=== PATIENT | female | born 1990 | race Caucasian/White ===

== ENCOUNTER → 2017-05-12 10:38 | Outpatient (CLI) | payer OTHER, SELFPAY ==
[2017-05-12 10:55] LABS: Basophils % 0.6 % (0.1-2.0); Eosinophils # 0.1 K/mm3 (0.0-0.4); Eosinophils % 1.4 % (0.1-12.0); Hematocrit 44.5 % (37.0-47.0); Lymphocytes # 2.2 K/mm3 (0.7-4.5); Lymphocytes % 39.7 K/mm3 (10-50); Mean Corpuscular HGB Conc 31.6 g/dL (31.8-35.4); Mean Corpuscular Hemoglobin 27.3 pg (27.0-31.2); Mean Corpuscular Volume 86.4 fl (81-99); Mean Platelet Volume 7.6 fl (7.4-10.4); Monocytes # 0.3 K/mm3 (0.1-1.0); Monocytes % 5.8 % (1.7-9.3); Neutrophils % 52.5 % (37.0-80.0); Platelet Count 342 K/mm3 (142-424); Red Blood Count 5.15 M/mm3 (4.20-5.40); Red Cell Distribution Width 13.8 % (11.5-17.5); White Blood Count 5.6 K/mm3 (4.8-10.8)
[2017-05-12 11:20] LABS: Alanine Aminotransferase 28 U/L (12-78); Albumin Level 3.6 gm/dL (3.4-5.0); Albumin/Globulin Ratio 0.7 (1.1-1.8); Alkaline Phosphatase 79 U/L (46-116); Anion Gap 11.4 mEq/L (5-15); Aspartate Amino Transferase 19 U/L (15-37); Bilirubin,Total 0.2 mg/dL (0.2-1.0); Blood Urea Nitrogen 16 mg/dL (7-18); Calcium 9.2 mg/dL (8.5-10.1); Carbon Dioxide 28 mmol/L (21.0-32.0); Chloride 101 mmol/L (98-107); Creatinine,Serum 0.84 mg/dL (0.55-1.02); Estimated Glomerular Filt Rate 83 ml/min (>60); Ferritin 59 ng/mL (8-388); GFR (African American) 101 ML/MIN (>60); Globulin 4.9 gm/dl (1.3-3.2); Glucose 87 mg/dL (74-106); Potassium 4.4 mmoL/L (3.5-5.1); Sodium 136 mmol/L (136-145); Total Protein,Serum 8.5 gm/dL (6.4-8.2)
[2017-05-13 15:09] LABS: Iron 36 ug/dL (27-159); Iron Saturation 9 % (15-55); UIBC 348 ug/dL (131-425)
[2017-05-15 15:37] LABS: Vitamin B12 629 pg/mL (232-1245); Vitamin D 25 Hydroxy 34.1 ng/mL (30.0-100.0)
== END ==
PROVIDERS: Visit Provider Nurse Practitioner Acute Care
DX: E61.1 Iron deficiency (principal)
CPT/HCPCS: 36415; 80053; 82607; 82652; 82728; 83550; 85025

== ENCOUNTER → 2018-05-13 09:26 | Outpatient (CLI) | payer OTHER, SELFPAY ==
[2018-05-13 09:42] LABS: Basophils # 0.1 K/mm3 (0-0.2); Basophils % 0.6 % (0.1-2.0); Eosinophils # 0.1 K/mm3 (0.0-0.4); Eosinophils % 1.5 % (0.1-12.0); Hematocrit 38.2 % (37.0-47.0); Hemoglobin 12.4 g/dL (12.2-16.2); Lymphocytes # 2.2 K/mm3 (0.7-4.5); Lymphocytes % 29.5 % (10-50); Mean Corpuscular HGB Conc 32.6 g/dL (31.8-35.4); Mean Corpuscular Hemoglobin 27.5 pg (27.0-31.2); Mean Corpuscular Volume 84.5 fl (81-99); Mean Platelet Volume 7.9 fl (7.4-10.4); Monocytes # 0.3 K/mm3 (0.1-1.0); Monocytes % 4.5 % (1.7-9.3); Neutrophils # 4.7 K/mm3 (1.8-7.8); Neutrophils % 63.9 % (37.0-80.0); Platelet Count 298 K/mm3 (142-424); Red Blood Count 4.52 M/mm3 (4.20-5.40); Red Cell Distribution Width 14.3 % (11.5-17.5); White Blood Count 7.3 K/mm3 (4.8-10.8)
[2018-05-13 10:58] LABS: Alanine Aminotransferase 19 U/L (12-78); Albumin Level 3.3 gm/dL (3.4-5.0); Albumin/Globulin Ratio 0.8 (1.1-1.8); Alkaline Phosphatase 72 U/L (46-116); Anion Gap 13.1 mEq/L (5-15); Aspartate Amino Transferase 13 U/L (15-37); Bilirubin,Total 0.1 mg/dL (0.2-1.0); Blood Urea Nitrogen 12 mg/dL (7-18); Calcium 8.6 mg/dL (8.5-10.1); Carbon Dioxide 27 mmol/L (21.0-32.0); Chloride 104 mmol/L (98-107); Chol/HDL Ratio 5.9 (1-3.5); Cholesterol 214 mg/dL (140-200); Estimated Glomerular Filt Rate 87 ml/min (>60); GFR (African American) 106 ML/MIN (>60); Globulin 4.3 gm/dl (1.3-3.2); Glucose 93 mg/dL (74-106); HDL Cholesterol 36 mg/dL (29-89); LDL Cholesterol 119 mg/dL (0-130); Potassium 4.1 mmoL/L (3.5-5.1); Sodium 140 mmol/L (136-145); Thyroid Stimulating Hormone 3.36 uIU/ml (0.358-3.740); Total Protein,Serum 7.6 gm/dL (6.4-8.2); Triglycerides 297 mg/dL (30-200); VLDL Cholesterol 59 mg/dL (0-40)
== END ==
PROVIDERS: Visit Provider Nurse Practitioner Family
DX: Z00.00 Encounter for general adult medical examination without abnormal findings (principal); R63.5 Abnormal weight gain
CPT/HCPCS: 36415; 80053; 80061; 84443; 85025

== ENCOUNTER → 2019-11-03 18:15 | Outpatient (CLI) | payer BC, SELFPAY ==
[2019-11-05 16:08] LABS: Covid-19 Nasal PCR Sendout Lex Not Detected
== END ==
PROVIDERS: PCP Internal Medicine Adolescent Medicine; Visit Provider Internal Medicine Adolescent Medicine
DX: Z03.818 Encounter for observation for suspected exposure to other biological agents ruled out (principal); R52 Pain, unspecified
CPT/HCPCS: U0004

== ENCOUNTER → 2020-05-20 10:01 | Outpatient (CLI) | payer BC, SELFPAY ==
[2020-05-20 11:23] LABS: HCG,Quantitative < 2 mIU/ml (0-5.42)
== END ==
PROVIDERS: Visit Provider Nurse Practitioner Family
DX: N92.6 Irregular menstruation, unspecified (principal)
CPT/HCPCS: 36415; 84702

== ENCOUNTER 2020-07-11 14:45 | Emergency (ER) | payer BC, SELFPAY ==
[2020-07-11 14:45] VITALS: BP 140/108; PULSE 96; RESP 21; TEMP 36.8; O2SAT 96; BMI 35.1
--- NOTE | 2020-07-11 15:07 | HMH.EDUTC ---
[facility] [place] Disposition Clinical Impression: Poison jovanny dermatitis Disposition: Home, Self-Care Condition on Discharge: Good Instructions: Summertime Rashes: Poison Jovanny, [place], and [place], Poison Jovanny, Poison [place], Poison [place], DI for Poison Jovanny Allergy, Prednisone Additional Instructions: Cool compresses on the skin may help with itching Over the counter Benadryl may help with itching Over the counter Calamine lotion may help with itching and to dry up the rash Oatmeal bathes may help to dry up the rash Start oral prednisone on 07/13/20 Prescriptions: predniSONE [Prednisone 5mg Tab Dose-Pack] 5 mg PO UD DOSE PK 6 Days #21 pack Transmission Status: Received by [facility] [id number] Referrals: Ino Hernandez MD [Primary Care Provider] - As needed Medical Decision Making - Erik Inquiry Pt receiving controlled substance: No Erik was queried for this patient: No Vital Signs: 07/11/20 14:45 07/11/20 15:35 Temperature 98.2 F 98.2 F Temperature Source Oral Pulse Rate 96 H Pulse Rate [Right Brachial] 96 H Respiratory Rate Blood Pressure 138/92 H Blood Pressure [Right Arm] 140/108 H Blood Pressure Mean [Right Arm] 118 Blood Pressure Source Automatic Cuff Blood Pressure Source [Right Arm] Automatic Cuff Blood Pressure Position Sitting Blood Pressure Position [Right Arm] Sitting 02 Sat by Pulse Oximetry 96 Oxygen Delivery Method Room Air - Lab Data Lab Results 07/11/20 15:21: [facility] Clinic Negative Orders (Tests/Meds): ED MEDICATIONS Discontinued Medications Generic Name Dose Route Start Last Admin Trade Name Rony PRN Reason Stop Dose Admin Methylprednisolone Sodium Succinate 125 mg 07/11/20 15:11 07/11/20 15:26 Methylprednisolone Sod Succ 125mg Vial IM 07/11/20 15:12 125 mg ONCE ONE Administration [facility] [place] HPI - General Stated complaint: poison jovanny Time Seen by Provider: 07/11/20 15:07 Mode of Arrival: Ambulatory Source of Information: Patient Limitations: No Limitations Description of Symptoms (Recalled from Triage Doc. by RN): PATIENT C/O POISON JOVANNY SINCE YESTERDAY HEENT Symptoms (Recalled from RN notes): No Resp Symptoms (Recalled from RN notes): No Skin Symptoms (Recalled from RN notes): Yes MS Symptoms (Recalled from RN notes): No Functional Status (Recalled from RN notes): WNL - History of Present Illness Provider Complaint: Patient states that she was recently exposed to poision jovanny and noticed yesterday that she was starting to break out around her left eye and on her chest, side and arms State that today her eye is a little swollen and the rash is getting worse so she come in to get a shot for it - Related Data Previous Rx's Medication Instructions Recorded predniSONE [Prednisone 5mg Tab 5 mg PO UD DOSE PK 6 Days #21 pack 07/11/20 Dose-Pack] Allergies Allergy/AdvReac Type Severity Reaction Status Date / Time No Known Allergies Allergy Verified 07/11/20 15:06 - Worker's Comp Is this a Worker's Comp case?: No [facility] History - Hepatitis A Screen Drug use history?: No High risk sexual behaviors?: No History of sexually transmitted infection?: No Currently employed?: No Childcare worker?: No Do you have indoor plumbing?: Yes Do you have electricity?: Yes Attestation statement:: This patient has been screened for Hepatitis A risk factors. I have reviewed the patient's past medical history: Yes - Social History Alcohol Intake: current Alcohol Intake Frequency:: holidays/special occasions only Occupational Status: other ROS Obtained: Yes All systems reviewed & no additional complaints, Yes Systems reviewed as appropriate & no additional complaints - Constitutional Constitutional: Reports system reviewed and no additional complaints, except as docu - ENT Ears, Nose, Mouth, and Throat: Reports system reviewed and no additional complaints, except as docu - Cardiovascular Cardiovascular: Reports system andrew
[2020-07-11 15:33] LABS: UTC Pregnancy Test, Urine Negative (Negative)
[2020-07-11 15:35] VITALS: BP 138/92; PULSE 96; RESP 21; TEMP 36.8; O2SAT 96
== END 2020-07-11 15:40 | disposition home or self-care (01) ==
PROVIDERS: Emergency Provider Nurse Practitioner; PCP Internal Medicine Adolescent Medicine
DX: L23.7 Allergic contact dermatitis due to plants, except food (principal)
CPT/HCPCS: 81025; 96372; 99202; G0463

== ENCOUNTER → 2020-08-24 13:08 | Outpatient (CLI) | payer BC, SELFPAY ==
--- NOTE | 2020-08-24 13:12 | XR_ITS ---
PROCEDURE: XR FOOT LT MIN 3V CLINICAL INDICATION: LT FOOT PAIN COMPARISON: CR FTL3 FOOT-LT-3 VIEWS from 06/18/2013 FINDINGS: There is a nondisplaced oblique fracture of the 5th metatarsal involving the mid to distal shaft. Good alignment. The joint spaces are well-preserved. No significant degenerative/arthritic changes. No erosive changes evident. Other findings:None. IMPRESSION: Nondisplaced 5th metatarsal fracture Dictated by: Shantanu Rogers MD 08/24/2020 13:38 Shantanu Rogers MD in [place] 08/24/2020 13:38
== END ==
PROVIDERS: PCP Nurse Practitioner Family; Visit Provider Nurse Practitioner Family
DX: M79.672 Pain in left foot (principal)
CPT/HCPCS: 73630

== ENCOUNTER 2020-08-24 14:10 | Outpatient (RCR) | payer BC, SELFPAY | END 2020-08-24 15:00 | disposition home or self-care (01) | LOC: PT 14:10 | PROVIDERS: Visit Provider Nurse Practitioner Family | DX: S92.355A Nondisplaced fracture of fifth metatarsal bone, left foot, initial encounter for closed fracture (principal) | CPT/HCPCS: 97760 ==

== ENCOUNTER → 2020-09-02 07:43 | Outpatient (CLI) | payer BC, SELFPAY ==
--- NOTE | 2020-09-02 07:43 | CT_ITS ---
PROCEDURE: CT FOOT LT WO CON CLINICAL HISTORY: fracture evaluation/surgical planning COMPARISON: CR XR FOOT LT MIN 3V from 08/24/2020 TECHNIQUE: Axial images obtained with sagittal and coronal reformats. All CT scans at the facility use one or more dose reduction, viz: automated exposure control, ma/kV adjustment per patient size (including targeted exams where dose is matched to indication, i.e. head), or iterative reconstruction technique. FINDINGS: There is a comminuted mildly displaced fracture of the distal diaphysis of the 5th metatarsal. No evidence of distracted fracture fragments noted. There is minor adjacent callus formation noted. The rest of the tarsometatarsal and subtalar joints are within normal limits. Bone density is within normal limits. There is soft tissue swelling adjacent to the lateral aspect of the foot consistent with recent injury. The soft tissues are otherwise unremarkable. IMPRESSION: Mildly displaced comminuted fracture of the distal 5th metatarsal diaphysis. Dictated by: Alexsandra Tolliver 09/02/2020 08:34 Alexsandra Tolliver in [place] 09/02/2020 08:34
== END ==
PROVIDERS: PCP Nurse Practitioner Family; Visit Provider Podiatrist
DX: S92.352A Displaced fracture of fifth metatarsal bone, left foot, initial encounter for closed fracture (principal)
CPT/HCPCS: 73700

== ENCOUNTER → 2020-09-30 07:30 | Outpatient (CLI) | payer BC, SELFPAY ==
--- NOTE | 2020-09-30 07:36 | XR_ITS ---
PROCEDURE: XR FOOT WT BEARING LT 3V CLINICAL INDICATION: Fracture follow up COMPARISON: CR FTL3 FOOT-LT-3 VIEWS from 06/18/2013 CR XR FOOT LT MIN 3V from 08/24/2020 FINDINGS: Healing fracture involves the mid and distal shaft of the 5th metatarsal. This is nondisplaced with some callus formation developing laterally. IMPRESSION: Healing nondisplaced 5th metatarsal fracture with good alignment. Dictated by: Shantanu Rogers MD 09/30/2020 11:28 Shantanu Rogers MD in [place] 09/30/2020 11:28
== END ==
PROVIDERS: PCP Internal Medicine Adolescent Medicine; Visit Provider Podiatrist
DX: S92.352A Displaced fracture of fifth metatarsal bone, left foot, initial encounter for closed fracture (principal)
CPT/HCPCS: 73630

== ENCOUNTER → 2020-10-28 08:01 | Outpatient (CLI) | payer BC, SELFPAY ==
--- NOTE | 2020-10-28 08:04 | XR_ITS ---
PROCEDURE: XR FOOT WT BEARING LT 3V CLINICAL INDICATION: fracture followup COMPARISON: CR FTL3 FOOT-LT-3 VIEWS from 06/18/2013 CR XR FOOT LT MIN 3V from 08/24/2020 CR XR FOOT WT BEARING LT 3V from 09/30/2020 FINDINGS: Healing fractures present involving the distal shaft of the 5th metatarsal. Fracture line is less apparent with callus formation noted. There is good alignment. The joint spaces are well-preserved. No significant degenerative/arthritic changes. No erosive changes evident. Other findings:None. IMPRESSION: Healing 5th metatarsal fracture Dictated by: Shantanu Rogers MD 10/28/2020 15:22 Shantanu Rogers MD in [place] 10/28/2020 15:22
== END ==
PROVIDERS: PCP Internal Medicine Adolescent Medicine; Visit Provider Podiatrist
DX: S92.355D Nondisplaced fracture of fifth metatarsal bone, left foot, subsequent encounter for fracture with routine healing (principal); T14.8XXA Other injury of unspecified body region, initial encounter
CPT/HCPCS: 73630

== ENCOUNTER → 2020-11-09 09:10 | Outpatient (CLI) | payer BC, SELFPAY ==
[2020-11-09 09:39] LABS: Basophils # 0.1 K/mm3 (0-0.2); Basophils % 1.1 % (0.1-2.0); Eosinophils # 0.1 K/mm3 (0.0-0.4); Eosinophils % 1.1 % (0.1-12.0); Lymphocytes # 2.8 K/mm3 (0.7-4.5); Lymphocytes % 45.6 % (10-50); Mean Corpuscular HGB Conc 33.3 g/dL (31.8-35.4); Mean Corpuscular Hemoglobin 28.2 pg (27.0-31.2); Mean Corpuscular Volume 84.7 fl (81-99); Mean Platelet Volume 8.3 fl (7.4-10.4); Monocytes # 0.3 K/mm3 (0.1-1.0); Monocytes % 4.4 % (1.7-9.3); Neutrophils % 47.7 % (37.0-80.0); Platelet Count 355 K/mm3 (142-424); Red Blood Count 4.96 M/mm3 (4.20-5.40); Red Cell Distribution Width 13.7 % (11.5-17.5); White Blood Count 6.2 K/mm3 (4.8-10.8)
[2020-11-09 10:35] LABS: Alanine Aminotransferase 37 U/L (12-78); Albumin Level 4.6 g/dl (3.5-5.0); Albumin/Globulin Ratio 1.3 (1.1-1.8); Alkaline Phosphatase 75 U/L (38-126); Anion Gap 16.3 mEq/L (5-15); Aspartate Amino Transferase 32 U/L (14-36); Bilirubin,Total 0.6 mg/dl (0.2-1.3); Blood Urea Nitrogen 10 mg/dl (7-17); Calcium 9.8 mg/dl (8.4-10.2); Carbon Dioxide 25 mmol/L (22.0-30.0); Chloride 103 mmol/L (98-107); Chol/HDL Ratio 7.9 (1-3.5); Cholesterol 278 mg/dl (140-200); Estimated Glomerular Filt Rate 100 ml/min (>60); GFR (African American) 121 ML/MIN (>60); Globulin 3.5 g/dL (1.3-3.2); Glucose 95 mg/dl (74-100); HDL Cholesterol 35 mg/dl (40-60); Potassium 4.3 mmoL/L (3.5-5.1); Sodium 140 mmol/L (136-145); Total Protein,Serum 8.1 g/dl (6.3-8.2); Triglycerides 377 mg/dl (30-150); VLDL Cholesterol 75 mg/dL (0-40)
[2020-11-09 10:45] LABS: Direct LDL Cholesterol 152.01 mg/dL (100-129)
[2020-11-09 10:53] LABS: 25-OH Vitamin D, Total 26.9 ng/mL (30-100)
[2020-11-09 11:06] LABS: Thyroid Stimulating Hormone 5.09 uIU/mL (0.465-4.68)
[2020-11-09 11:24] LABS: Vitamin B12 636 pg/mL (239-931)
[2020-11-13 05:09] LABS: QuantiFERON-TB Gold Plus Negative (Negative)
== END ==
PROVIDERS: Nurse Practitioner Family; Visit Provider Internal Medicine Adolescent Medicine
DX: Z00.00 Encounter for general adult medical examination without abnormal findings (principal); R53.83 Other fatigue; E55.9 Vitamin D deficiency, unspecified; Z11.1 Encounter for screening for respiratory tuberculosis
CPT/HCPCS: 36415; 80053; 80061; 82306; 82607; 84443; 85025; 86480

== ENCOUNTER → 2020-11-29 08:03 | Outpatient (CLI) | payer OTHER, SELFPAY ==
--- NOTE | 2020-11-29 08:09 | XR_ITS ---
PROCEDURE: XR FOOT WT BEARING LT 3V CLINICAL INDICATION: fracture follow up COMPARISON: CR FTL3 FOOT-LT-3 VIEWS from 06/18/2013 CR XR FOOT LT MIN 3V from 08/24/2020 CR XR FOOT WT BEARING LT 3V from 09/30/2020 CR XR FOOT WT BEARING LT 3V from 10/28/2020 FINDINGS: There is a healing fracture involving the distal shaft of the 5th metatarsal with good alignment. The joint spaces are well-preserved. No significant degenerative/arthritic changes. No erosive changes evident. Other findings:None. IMPRESSION: No change nondisplaced healing 5th metatarsal fracture Dictated by: Shantanu Rogers MD 11/29/2020 11:30 Shantanu Rogers MD in [place] 11/29/2020 11:30
== END ==
PROVIDERS: PCP Internal Medicine Adolescent Medicine; Visit Provider Podiatrist
DX: S92.352A Displaced fracture of fifth metatarsal bone, left foot, initial encounter for closed fracture (principal)
CPT/HCPCS: 73630

== ENCOUNTER → 2021-09-15 11:46 | Outpatient (CLI) | payer OTHER, SELFPAY ==
[2021-09-15 12:32] LABS: Urine Pregnancy, HCG Qual. Negative (Negative)
== END ==
PROVIDERS: PCP Internal Medicine Adolescent Medicine; Visit Provider Internal Medicine Adolescent Medicine
DX: Z23 Encounter for immunization (principal)
CPT/HCPCS: 81025

== ENCOUNTER → 2022-09-15 11:43 | Outpatient (CLI) | payer OTHER, SELFPAY ==
[2022-09-18 09:24] LABS: QuantiFERON-TB Gold Plus Negative (Negative)
== END ==
LOC: LAB 11:44
PROVIDERS: PCP Internal Medicine Adolescent Medicine; Visit Provider Internal Medicine Adolescent Medicine
DX: Z11.1 Encounter for screening for respiratory tuberculosis (principal)
CPT/HCPCS: 36415; 86480

== ENCOUNTER 2023-06-18 10:23 | Outpatient (CLI) | payer BC, SELFPAY ==
[2023-06-18 11:19] LABS: Basophils # 0.1 K/mm3 (0-0.2); Eosinophils # 0.1 K/mm3 (0.0-0.4); Eosinophils % 1.8 % (0.1-12.0); Hematocrit 39.1 % (37.0-47.0); Hemoglobin 12.9 g/dL (12.2-16.2); Lymphocytes # 2.3 K/mm3 (0.7-4.5); Lymphocytes % 36.8 % (10-50); Mean Corpuscular Hemoglobin 28.2 pg (27.0-31.2); Mean Corpuscular Volume 85.6 fl (81-99); Mean Platelet Volume 8.1 fl (7.4-10.4); Monocytes # 0.4 K/mm3 (0.1-1.0); Monocytes % 6.5 % (1.7-9.3); Neutrophils # 3.4 K/mm3 (1.8-7.8); Platelet Count 243 K/mm3 (142-424); Red Blood Count 4.57 M/mm3 (4.20-5.40); Red Cell Distribution Width 14.8 % (11.5-17.5); White Blood Count 6.3 K/mm3 (4.8-10.8)
[2023-06-18 11:52] LABS: Alanine Aminotransferase 33 U/L (12-78); Albumin Level 4.3 g/dl (3.5-5.0); Albumin/Globulin Ratio 1.4 (1.1-1.8); Alkaline Phosphatase 54 U/L (38-126); Anion Gap 10.3 mEq/L (5-15); Aspartate Amino Transferase 31 U/L (14-36); Bilirubin,Total 0.5 mg/dl (0.2-1.3); Blood Urea Nitrogen 17 mg/dl (7-17); Calcium 9.6 mg/dl (8.4-10.2); Carbon Dioxide 28 mmol/L (22.0-30.0); Chloride 106 mmol/L (98-107); Chol/HDL Ratio 8.7 (1-3.5); Cholesterol 278 mg/dl (140-200); Estimated Glomerular Filt Rate 84 ml/min (>60); GFR (African American) 102 ML/MIN (>60); Glucose 90 mg/dl (74-100); HDL Cholesterol 32 mg/dl (40-60); Potassium 4.3 mmoL/L (3.5-5.1); Sodium 140 mmol/L (136-145); Total Protein,Serum 7.3 g/dl (6.3-8.2)
[2023-06-18 11:55] LABS: Triglycerides 433 mg/dl (30-150)
[2023-06-18 12:02] LABS: Direct LDL Cholesterol 137.71 mg/dL (100-129)
[2023-06-18 12:08] LABS: T4 (Thyroxine) 6.1 ug/dl (5.53-11.0)
[2023-06-18 12:11] LABS: HCG,Quantitative < 2 mIU/ml (0-5.42)
[2023-06-18 12:12] LABS: 25-OH Vitamin D, Total 16.6 ng/mL (30-100)
[2023-06-18 12:20] LABS: Hemoglobin A1C 5.4 % (4.0-6.0)
[2023-06-18 12:23] LABS: Thyroid Stimulating Hormone 1.76 uIU/mL (0.465-4.68)
[2023-06-18 12:42] LABS: Vitamin B12 739 pg/mL (239-931)
== END 2023-06-18 23:59 | disposition home or self-care (01) ==
LOC: LAB 10:25
PROVIDERS: PCP Internal Medicine Adolescent Medicine; Visit Provider Internal Medicine Adolescent Medicine
DX: E55.9 Vitamin D deficiency, unspecified (principal); N92.6 Irregular menstruation, unspecified; R53.81 Other malaise; R53.83 Other fatigue; Z83.3 Family history of diabetes mellitus; Z68.35 Body mass index [BMI] 35.0-35.9, adult
CPT/HCPCS: 36415; 80053; 80061; 82306; 82607; 83036; 84436; 84443; 84702; 85025

== ENCOUNTER → 2024-07-23 07:48 | Outpatient (CLI) | payer BC, SELFPAY | LOC: SL 07:49 | PROVIDERS: PCP Internal Medicine Adolescent Medicine; Visit Provider Internal Medicine Adolescent Medicine | DX: G47.33 Obstructive sleep apnea (adult) (pediatric) (principal); G47.36 Sleep related hypoventilation in conditions classified elsewhere | CPT/HCPCS: G0399 ==